=== PATIENT | male | born 1995 | race Asian ===

== ENCOUNTER 2018-04-18 17:38 | Emergency (ER) | payer BC ==
[~2018-04-18] VITALS: Ht 172.7 cm; Wt 81.6 kg
[2018-04-18 17:56] VITALS: BP 145/84
== END 2018-04-18 19:07 | disposition home or self-care (01) ==
LOC: ED 18:54
DX: S20.219A Contusion of unspecified front wall of thorax, initial encounter (principal); X58.XXXA Exposure to other specified factors, initial encounter; Y93.89 Activity, other specified; Y92.89 Other specified places as the place of occurrence of the external cause; Y99.8 Other external cause status
CPT/HCPCS: 71046; 71120; 93005; 99284